=== PATIENT | female | born 1980 | race Caucasian/White ===

== ENCOUNTER 2017-07-30 20:36 | Emergency (ER) | payer OTHER | END 2017-07-30 23:00 | disposition left against medical advice (07) | LOC: ED 20:36 | DX: Z53.21 Procedure and treatment not carried out due to patient leaving prior to being seen by health care provider (principal) ==

== ENCOUNTER 2019-08-30 12:49 | Emergency (ER) | payer OTHER ==
[2019-08-30 13:27] VITALS: BP 123/61
--- NOTE | 2019-08-30 13:27 | Event Note ---
ED Screening Note ED Screening Note: sore throat states that her throat feels swollen occasional mild vomiting for a month no fever no vomiting chronic knee pain for three months no fall or injury no numbness or weakness ambulatory without difficulty went to her doctor and they gave her medicine pmhx none no allergies to meds LNMP: currently on cycle This initial assessment/diagnostic orders/clinical plan/treatment(s) is/are subject to change based on patients health status, clinical progression and re- assessment by fellow clinical providers in the ED. Further treatment and workup at subsequent clinical providers discretion. Patient/guardian urged not to elope from the ED as their condition may be serious if not clinically assessed and managed. Initial orders include:
--- NOTE | 2019-08-30 13:32 | Emergency Department Report ---
Chief Complaint: Sore Throat Stated Complaint: BLE KNEE SWOLLEN Time Seen by Provider: 08/30/19 13:22 - HPI History of Present Illness: sore throat states that her throat feels swollen states occasional feels like she needs to vomit this has been going on for a month no fever no vomiting chronic knee pain for three months no fall or injury no numbness or weakness ambulatory without difficulty went to her doctor and they gave her medicine which she states helped her knee pain pmhx none no allergies to meds LNMP: currently on cycle VSS on exam: non toxic appearing, no acute distress PERRL, EOMI, normal appearance of the eyes normal turbinates, normal TMs and canals bilaterally, normal oropharynx, no tonsillar hypertrophy or exudates, uvula is midline, no uvular edema or deviation no LAD mild fullness in the region of the thyroid, no goiter, no obvious nodules, FROM of the neck without difficulty mild bradycardia, regular rhythm, no murmurs, no gallops, no rubs breath sounds are clear bilaterally, no w/r/r, no stridor FROM of the bilateral knees without difficulty, no TTP of the bilateral knees, no obvious edema, no joint laxity, neurovascularly intact skin is warm, dry, intact pt is presenting with a non medical emergency at this time, there is no threat to life or limb at this time will refer pt to an orthopedic for her chronic knee pain will refer pt to PCP and ENT, advised pt to have a full thyroid panel run by her PCP due to mild fullness pt given strict return precautions [place] interpretation by pts daughter - Exam Vital Signs: Vital Signs 08/30/19 13:22 Temperature 98 F Pulse Rate 57 L Respiratory 18 Rate Blood Pressure 123/61 O2 Sat by Pulse 100 Oximetry MSE screening note: Focused history and physical exam performed. ED Disposition for MSE Clinical Impression: Thyroid fullness Chronic knee pain Qualifiers: Laterality: bilateral Qualified Code(s): M25.561 - Pain in right knee Disposition: Z-07 MED SCREENING EXAM-LEFT Is pt being admited?: No Does the pt Need Aspirin: No Condition: Stable Instructions: Knee Pain (ED) Additional Instructions: please follow up with your primary care doctor. you have some fullness in the thyroid region you need to have a full thyroid panel performed by your primary care doctor. please follow up with an orthopedic doctor for your knee pain. may use ice for 15 minutes at a time, rest, elevation of the leg, etc. return to the emergency room for any new or worsening symptoms. macrina un seguimiento con delgado mdico de atencin primaria. tiene algo de plenitud en la regin tiroidea, necesita que delgado mdico de atencin primaria realice un panel completo de tiroides. macrina un seguimiento con un mdico ortopdico para el dolor de rodilla. puede usar hielo neris 15 minutos seguidos, descansar, elevar la pierna, etc. regresar a la sara de emergencias por cualquier sntoma nuevo o que empeore. Referrals: your, primary care doctor [Other] - 2-3 Days PACHECO KOCH MD [Staff Physician] - 2-3 Days CHRIS PHILLIPS MD [Staff Physician] - 2-3 Days ALESSIA GRANT MD [Staff Physician] - 2-3 Days Time of Disposition: 13:33 Print Language: MOLDOVAN
== END 2019-08-30 14:21 | disposition left against medical advice (07) ==
LOC: ED 12:49
DX: M25.561 Pain in right knee (principal); G89.29 Other chronic pain; E05.00 Thyrotoxicosis with diffuse goiter without thyrotoxic crisis or storm
CPT/HCPCS: 99281

== ENCOUNTER 2019-09-10 19:31 | Emergency (ER) | payer OTHER ==
--- NOTE | 2019-09-10 20:07 | Emergency Department Report ---
Blank Doc - Documentation Documentation: 38-year-old female that presents with urinary symptoms. This initial assessment/diagnostic orders/clinical plan/treatment(s) is/are subject to change based on patient's health status, clinical progression and re- assessment by fellow clinical providers in the ED. Further treatment and workup at subsequent clinical providers discretion. Patient/guardians urged not to elope from the ED as their condition may be serious if not clinically assessed and managed. Initial orders include: 1- Patient sent to [facility] for further evaluation and treatment 2- UA
[2019-09-10 21:52] LABS: Bacteria,Urine 1+ /HPF (Negative); Bilirubin,Urine NEG (Negative); Blood,Urine NEG (Negative); Color,Urine Straw (Yellow); Mucus,Urine 1+ /HPF; Protein,Urine <15 mg/dL mg/dL (Negative); Urobilinogen,Urine < 2.0 mg/dL (<2.0)
[2019-09-10 21:55] LABS: HCG Qualitative,Urine Negative (Negative)
[2019-09-10] MEDS ORDERED: LIDOCAINE-MPF (1%) 10 MG/1 ML VIAL 5 ML ONE (23:56)
[2019-09-11] MEDS ORDERED: AZITHROMYCIN 250 MG TAB PO ONE (00:14)
[2019-09-11] MEDS ORDERED: HYDROcodone/ACETAMINOPHEN 5-325 MG TAB PO ONE (00:14)
[2019-09-11] MEDS ORDERED: LIDOCAINE-MPF (1%) 10 MG/1 ML VIAL 5 ML INFILTRATI ONE (00:15)
--- NOTE | 2019-09-11 00:21 | Emergency Department Report ---
ED Female HPI - General Chief complaint: Urogenital-Female Stated complaint: PAIN WHEN URINATING Time Seen by Provider: 09/10/19 20:06 Source: patient Mode of arrival: Ambulatory Limitations: No Limitations - History of Present Illness Initial comments: Ms. Begum is a 38-year-old female that presents with urinary symptoms and abscess on left labia. There is no fever or chills. no n/v. MD Complaint: vaginal discharge, dysuria, other (bartholin cyst / abscess ) Onset/Timin -: days(s) Location: labia (left ) Severity: moderate Severity scale (0 -10): 5 Quality: aching Consistency: constant Worsens with: urination Are you Now?: No Last Menstrual Period: 09/09/19 EDC: 06/15/20 Associated Symptoms: vaginal discharge, dysuria. denies: abdominal pain, nausea/vomiting, hematuria - Related Data Sexually active: Yes : 3 Para: 3 A: 0 Previous Rx's Medication Instructions Recorded Last Taken Type Amoxicillin [Trimox CAP] 500 mg PO QID #40 capsule 05/10/13 Unknown Rx Hydrocodone Bit/Acetaminophen 1 each PO Q6HR #15 tablet 05/10/13 Unknown Rx [Lortab 5-500 Tablet] Loratadine (Nf) [Claritin] 10 mg PO DAILY #30 tablet 05/10/13 Unknown Rx Prednisone 40 mg PO QDAY #10 tablet 05/10/13 Unknown Rx traMADoL [Ultram] 50 mg PO Q6HR PRN #30 tablet 03/26/16 Unknown Rx cephALEXin [Keflex] 500 mg PO BID 7 Days #14 cap 09/11/19 Unknown Rx metroNIDAZOLE [Flagyl] 500 mg PO BID 7 Days #14 tablet 09/11/19 Unknown Rx traMADoL [Ultram] 50 mg PO Q6HR PRN #12 tablet 09/11/19 Unknown Rx Allergies Allergy/AdvReac Type Severity Reaction Status Date / Time No Known Allergies Allergy Unverified 05/10/13 15:40 ED Review of Systems ROS: Stated complaint: PAIN WHEN URINATING Other details as noted in HPI Constitutional: denies: chills, fever Eyes: denies: eye pain, eye discharge, vision change ENT: denies: ear pain, throat pain Respiratory: denies: cough, shortness of breath, wheezing Cardiovascular: denies: chest pain, palpitations Endocrine: no symptoms reported Gastrointestinal: abdominal pain. denies: nausea, vomiting, diarrhea, constipation Genitourinary: urgency, dysuria, frequency, discharge (white thick ), dyspareunia. denies: hematuria Musculoskeletal: denies: back pain, joint swelling, arthralgia Skin: denies: rash, lesions Neurological: denies: headache, weakness, paresthesias Psychiatric: denies: anxiety, depression Hematological/Lymphatic: denies: easy bleeding, easy bruising ED Past Medical Hx - Past Medical History Previous Medical History?: Yes Hx Diabetes: Yes (pregancy only) - Surgical History Past Surgical History?: No - Social History Smoking Status: Never Smoker Substance Use Type: None - Medications Home Medications: Home Medications Medication Instructions Recorded Confirmed Last Taken Type Amoxicillin [Trimox CAP] 500 mg PO QID #40 capsule 05/10/13 Unknown Rx Hydrocodone Bit/Acetaminophen 1 each PO Q6HR #15 tablet 05/10/13 Unknown Rx [Lortab 5-500 Tablet] Loratadine (Nf) [Claritin] 10 mg PO DAILY #30 tablet 05/10/13 Unknown Rx Prednisone 40 mg PO QDAY #10 tablet 05/10/13 Unknown Rx traMADoL [Ultram] 50 mg PO Q6HR PRN #30 tablet 03/26/16 Unknown Rx cephALEXin [Keflex] 500 mg PO BID 7 Days #14 cap 09/11/19 Unknown Rx metroNIDAZOLE [Flagyl] 500 mg PO BID 7 Days #14 tablet 09/11/19 Unknown Rx traMADoL [Ultram] 50 mg PO Q6HR PRN #12 tablet 09/11/19 Unknown Rx ED Physical Exam - General Limitations: No Limitations General appearance: alert, in no apparent distress - Head Head exam: Present: atraumatic, normocephalic - Eye Eye exam: Present: normal appearance, PERRL, EOMI Pupils: Present: normal accommodation - ENT ENT exam: Present: mucous membranes moist - Neck Neck exam: Present: normal inspection, full ROM. Absent: tenderness - Respiratory Respiratory exam: Present: normal lung sounds bilaterally. Absent: respiratory distress, wheezes - Cardiovascular Cardiovascular Exam: Present: regular rate, normal rhythm, normal heart sounds. Absent: systolic murmur, diastolic murmur, rubs, gallop - GI/Abdominal GI/Abdominal exam: Present: soft, normal bowel sounds. Absent: distended, tenderness, bruit, hernia - Rectal Rectal exam: Present: deferred - External exam: Present: erythema, swelling (left labia ). Absent: lesions, lacerations, ecchymosis, bleeding Speculum exam: Present: erythema, vaginal discharge (white thick malodorous ). Absent: cervical discharge, vaginal bleeding, foreign body, tissue, laceration Bi-manual exam: Absent: cervical motion tendernes - Extremities Exam Extremities exam: Present: normal inspection. Absent: tenderness - Back Exam Back exam: Present: normal inspection, full ROM. Absent: tenderness, CVA tenderness (R), CVA tenderness (L), rash noted - Neurological Exam Neurological exam: Present: alert, oriented X3, CN II-XII intact, normal gait - Psychiatric Psychiatric exam: Present: normal affect, normal mood - Skin Skin exam: Present: warm, dry, intact, normal color. Absent: rash ED Course Vital Signs 09/10/19 19:34 Temperature 97.9 F Pulse Rate 70 Respiratory 18 Rate Blood Pressure 126/58 O2 Sat by Pulse 100 Oximetry ED Medical Decision Making - Medical Decision Making Bartholin cyst for I&D pt tolerated procedure with minimal distress, pt tx'd with rocephin, azithromycin, hydrocodone, dc to home with rx for flagyl, for recurring batholyn cyst, no tx'd for STI previously, concerned fore same, pt will follow up with [facility] in 2-3 days, and health department for hiv and hsv screening. Critical care attestation.: If time is entered above; I have spent that time in minutes in the direct care of this critically ill patient, excluding procedure time. ED Disposition Clinical Impression: Bartholin cyst, Dysuria Vaginitis Qualifiers: Chronicity: acute Qualified Code(s): N76.0 - Acute vaginitis Disposition: DC-01 TO HOME OR SELFCARE Is pt being admited?: No Does the pt Need Aspirin: No Condition: Stable Instructions: Bartholin Cyst (ED), Dysuria (ED), Vaginitis (ED) Prescriptions: metroNIDAZOLE [Flagyl] 500 mg PO BID 7 Days #14 tablet cephALEXin [Keflex] 500 mg PO BID 7 Days #14 cap traMADoL [Ultram] 50 mg PO Q6HR PRN #12 tablet PRN Reason: Pain Referrals: JOSE BROWN MD [Staff Physician] - 3-5 Days DIONNE AMIN MD [Referring] - 3-5 Days Forms: Work/School Release Form(ED) Time of Disposition: 00:32 Print Language: GREENLANDIC
[2019-09-11 01:09] VITALS: BP 126/68
== END 2019-09-11 01:07 | disposition home or self-care (01) ==
LOC: ED 19:31
DX: N76.0 Acute vaginitis (principal); N75.0 Cyst of Bartholin's gland; Z79.899 Other long term (current) drug therapy
CPT/HCPCS: 56420; 81001; 81025; 87086; 93005; 93010; 96372; 99284; J0696

== ENCOUNTER 2019-10-05 09:18 | Outpatient (CLI) | payer OTHER ==
--- NOTE | 2019-10-05 11:58 | Ultrasound Report ---
ULTRASOUND THYROID INDICATION / CLINICAL INFORMATION: R94.6Abnormal results of thyroid function studies. COMPARISON: None available. FINDINGS: RIGHT LOBE: Size = 5.8 x 1.0 x 2.0 cm. - Echogenicity: Normal. - Vascularity: Normal. - Nodules < 1 cm: None. - Nodules >= 1 cm or Suspicious Nodules: None. LEFT LOBE: Size = 5.2 x 1.0 x 2.1 cm. - Echogenicity: Normal. - Vascularity: Normal. - Nodules < 1 cm: None. - Nodules >= 1 cm or Suspicious Nodules: None. ISTHMUS: No significant abnormality. - Nodules < 1 cm: None. - Nodules >= 1 cm or Suspicious Nodules: None. LYMPH NODES: No abnormal lymph nodes. PARATHYROID GLANDS: No abnormal parathyroid gland. ADDITIONAL FINDINGS: None. IMPRESSION: 1. No significant abnormality. Note: Nodule size based on mean (average) size of 3 dimensions. Note: Nodules < 1 cm do not typically require follow-up or FNA unless there are suspicious features ( CYRUS, 2015) ACR TI-RADS Thyroid Nodule Recommendations TI-RADS 1 (0 points) -- Benign. No FNA or follow-up. TI-RADS 2 (1-2 points) -- Not suspicious. No FNA or follow-up. TI-RADS 3 (3 points) -- Mildly suspicious. Follow up in 1 year if 1.5 cm. FNA if 2.5 cm. TI-RADS 4 (4-6 points) -- Moderately suspicious. Follow up in 1 year if 1.0 cm. FNA if 1.5 cm. TI-RADS 5 (7+ points) -- Highly suspicious. Follow up in 1 year if 0.5 cm. FNA if 1.0 cm. Signer Name: Cr Del Cid MD Signed: 10/05/2019 11:53 AM Workstation Name: [employer]
== END 2019-10-05 09:19 | disposition home or self-care (01) ==
LOC: US 09:18
PROVIDERS: ATTEND Internal Medicine
DX: R94.6 Abnormal results of thyroid function studies (principal)
CPT/HCPCS: 36415; 76536; 84439; 84443

== ENCOUNTER 2019-11-07 10:12 | Emergency (ER) | payer OTHER ==
[2019-11-07 10:19] VITALS: BP 120/80
[2019-11-07 10:42] LABS: Bacteria,Urine 1+ /HPF (Negative); Bilirubin,Urine NEG (Negative); Blood,Urine LG (Negative); Color,Urine Straw (Yellow); Mucus,Urine FEW /HPF; Protein,Urine <15 mg/dL mg/dL (Negative); Urobilinogen,Urine < 2.0 mg/dL (<2.0)
--- NOTE | 2019-11-07 11:53 | Emergency Department Report ---
ED Female HPI - General Chief complaint: Urogenital-Female Stated complaint: URINE ABNORMAL/ABD PAIN Time Seen by Provider: 11/07/19 10:39 Source: patient Mode of arrival: Ambulatory Limitations: No Limitations - History of Present Illness Initial comments: 39-year-old female presents to the emergency room complaining of burning sensation with urination. Patient denies any fever chills no nausea no vomiting no diarrhea. Does complain of suprapubic pain and dysuria. MD Complaint: dysuria - Related Data Previous Rx's Medication Instructions Recorded Last Taken Type Amoxicillin [Trimox CAP] 500 mg PO QID #40 capsule 05/10/13 Unknown Rx Hydrocodone Bit/Acetaminophen 1 each PO Q6HR #15 tablet 05/10/13 Unknown Rx [Lortab 5-500 Tablet] Loratadine (Nf) [Claritin] 10 mg PO DAILY #30 tablet 05/10/13 Unknown Rx Prednisone 40 mg PO QDAY #10 tablet 05/10/13 Unknown Rx traMADoL [Ultram] 50 mg PO Q6HR PRN #30 tablet 03/26/16 Unknown Rx cephALEXin [Keflex] 500 mg PO BID 7 Days #14 cap 09/11/19 Unknown Rx metroNIDAZOLE [Flagyl] 500 mg PO BID 7 Days #14 tablet 09/11/19 Unknown Rx traMADoL [Ultram] 50 mg PO Q6HR PRN #12 tablet 09/11/19 Unknown Rx Nitrofurantoin [place]/M-Cryst 100 mg PO Q12HR 10 Days #20 capsule 11/07/19 Unknown Rx [Macrobid CAP] Allergies Allergy/AdvReac Type Severity Reaction Status Date / Time No Known Allergies Allergy Unverified 05/10/13 15:40 ED Review of Systems ROS: Stated complaint: URINE ABNORMAL/ABD PAIN Other details as noted in HPI ED Past Medical Hx - Past Medical History Previous Medical History?: Yes Hx Diabetes: Yes (pregancy only) - Surgical History Past Surgical History?: No - Social History Smoking Status: Never Smoker Substance Use Type: None - Medications Home Medications: Home Medications Medication Instructions Recorded Confirmed Last Taken Type Amoxicillin [Trimox CAP] 500 mg PO QID #40 capsule 05/10/13 Unknown Rx Hydrocodone Bit/Acetaminophen 1 each PO Q6HR #15 tablet 05/10/13 Unknown Rx [Lortab 5-500 Tablet] Loratadine (Nf) [Claritin] 10 mg PO DAILY #30 tablet 05/10/13 Unknown Rx Prednisone 40 mg PO QDAY #10 tablet 05/10/13 Unknown Rx traMADoL [Ultram] 50 mg PO Q6HR PRN #30 tablet 03/26/16 Unknown Rx cephALEXin [Keflex] 500 mg PO BID 7 Days #14 cap 09/11/19 Unknown Rx metroNIDAZOLE [Flagyl] 500 mg PO BID 7 Days #14 tablet 09/11/19 Unknown Rx traMADoL [Ultram] 50 mg PO Q6HR PRN #12 tablet 09/11/19 Unknown Rx Nitrofurantoin [place]/M-Cryst 100 mg PO Q12HR 10 Days #20 capsule 11/07/19 Unknown Rx [Macrobid CAP] ED Physical Exam - General Limitations: No Limitations General appearance: alert, in no apparent distress - Head Head exam: Present: atraumatic, normocephalic - ENT ENT exam: Present: mucous membranes moist - Neurological Exam Neurological exam: Present: alert, oriented X3, normal gait - Psychiatric Psychiatric exam: Present: normal affect, normal mood - Skin Skin exam: Present: warm, dry, intact, normal color. Absent: rash ED Course Vital Signs 11/07/19 10:16 Temperature 98.2 F Pulse Rate 64 Respiratory 16 Rate Blood Pressure 120/80 O2 Sat by Pulse 100 Oximetry ED Medical Decision Making - Medical Decision Making 39-year-old female presents to the emergency room complaining of burning sensation with urination. Patient denies any fever chills no nausea no vomiting no diarrhea. Does complain of suprapubic pain and dysuria. Patient has a urinary tract infection will treat with Macrobid 100 mg p.o. twice daily for 10 days and recommend patient to take either Tylenol or ibuprofen for pain management. Patient is to increase her water intake. Critical care attestation.: If time is entered above; I have spent that time in minutes in the direct care of this critically ill patient, excluding procedure time. ED Disposition Clinical Impression: UTI (urinary tract infection) Disposition: DC-01 TO HOME OR SELFCARE Is pt being admited?: No Does the pt Need Aspirin: No Condition: Stable Instructions: Urinary Tract Infection in Women (ED) Additional Instructions: Complete antibiotic as prescribed medication. Take Tylenol or Ibuprofen as needed for pain. Increase fluid intake. Prescriptions: Nitrofurantoin [place]/M-Cryst [Macrobid CAP] 100 mg PO Q12HR 10 Days #20 capsule Referrals: JASSON MARTINEZ MD [Primary Care Provider] - 3-5 Days
== END 2019-11-07 12:16 | disposition home or self-care (01) ==
LOC: ED 10:12
DX: N39.0 Urinary tract infection, site not specified (principal); Z79.2 Long term (current) use of antibiotics; Z79.899 Other long term (current) drug therapy
CPT/HCPCS: 81001; 87086; 99283

== ENCOUNTER 2020-04-26 22:57 | Emergency (ER) | payer OTHER ==
[2020-04-27 01:54] VITALS: BP 110/37
[2020-04-27] MEDS ORDERED: diphenhydrAMINE 25 MG CAP PO ONE (02:23)
[2020-04-27] MEDS ORDERED: dexAMETHasone 20 MG/5 ML VIAL IM ONE (02:23)
[2020-04-27] MEDS ORDERED: traMADol 50 MG TAB PO ONE (02:24)
--- NOTE | 2020-04-27 02:29 | Emergency Department Report ---
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 Patient denies fall injury or trauma. There is no laceration no bleeding no deformity. Patient describes symptoms as tingly burning sensation . pt denies neck injury , fall , or other trauma. 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 Symptoms rated at 4/10. Symptoms are relieved by nothing tried. Patient has history of arthralgia and bilateral knee bursitis. - Related Data Previous Rx's Medication Instructions Recorded Last Taken Type Amoxicillin [Trimox CAP] 500 mg PO QID #40 capsule 05/10/13 Unknown Rx Hydrocodone Bit/Acetaminophen 1 each PO Q6HR #15 tablet 05/10/13 Unknown Rx [Lortab 5-500 Tablet] Loratadine (Nf) [Claritin] 10 mg PO DAILY #30 tablet 05/10/13 Unknown Rx Prednisone 40 mg PO QDAY #10 tablet 05/10/13 Unknown Rx traMADoL [Ultram] 50 mg PO Q6HR PRN #30 tablet 03/26/16 Unknown Rx cephALEXin [Keflex] 500 mg PO BID 7 Days #14 cap 09/11/19 Unknown Rx metroNIDAZOLE [Flagyl] 500 mg PO BID 7 Days #14 tablet 09/11/19 Unknown Rx traMADoL [Ultram] 50 mg PO Q6HR PRN #12 tablet 09/11/19 Unknown Rx Nitrofurantoin [place]/M-Cryst 100 mg PO Q12HR 10 Days #20 capsule 11/07/19 Unknown Rx [Macrobid CAP] Amoxicillin/Potassium Clav 1 each PO BID 10 Days #20 tablet 01/23/20 Unknown Rx [Augmentin 875-125 Tablet] Ibuprofen [Motrin 800 MG tab] 800 mg PO Q8HR PRN #15 tablet 01/23/20 Unknown Rx Prednisone [predniSONE 10 mg 10 mg PO .TAPER #1 tab.ds.pk 01/23/20 Unknown Rx (6-Day Pack, 21 Tabs)] Naproxen 500 mg PO BID PRN #30 tablet 04/27/20 Unknown Rx diphenhydrAMINE [Benadryl CAP] 25 mg PO Q8HR PRN 7 Days #21 04/27/20 Unknown Rx capsule predniSONE [Deltasone] 40 mg PO DAILY 5 Days #10 tablet 04/27/20 Unknown Rx Allergies Allergy/AdvReac Type Severity Reaction Status Date / Time No Known Allergies Allergy Unverified 05/10/13 15:40 ED Review of Systems ROS: Stated complaint: LEFTSIDE SHOULDER/ARM NUMBNESS Other details as noted in HPI Constitutional: denies: chills, fever Eyes: denies: eye pain, eye discharge, vision change ENT: denies: ear pain, throat pain Respiratory: denies: cough, shortness of breath, wheezing Cardiovascular: denies: chest pain, palpitations Endocrine: no symptoms reported Gastrointestinal: denies: abdominal pain, nausea, diarrhea Genitourinary: denies: urgency, dysuria, discharge Musculoskeletal: myalgia (left shoulder). denies: back pain, joint swelling, arthralgia Skin: denies: rash, lesions Neurological: denies: headache, weakness, paresthesias Psychiatric: denies: anxiety, depression Hematological/Lymphatic: denies: easy bleeding, easy bruising ED Past Medical Hx - Past Medical History Hx Diabetes: Yes (pregancy only) - Surgical History Past Surgical History?: No - Social History Smoking Status: Never Smoker Substance Use Type: None - Medications Home Medications: Home Medications Medication Instructions Recorded Confirmed Last Taken Type Amoxicillin [Trimox CAP] 500 mg PO QID #40 capsule 05/10/13 Unknown Rx Hydrocodone Bit/Acetaminophen 1 each PO Q6HR #15 tablet 05/10/13 Unknown Rx [Lortab 5-500 Tablet] Loratadine (Nf) [Claritin] 10 mg PO DAILY #30 tablet 05/10/13 Unknown Rx Prednisone 40 mg PO QDAY #10 tablet 05/10/13 Unknown Rx traMADoL [Ultram] 50 mg PO Q6HR PRN #30 tablet 03/26/16 Unknown Rx cephALEXin [Keflex] 500 mg PO BID 7 Days #14 cap 09/11/19 Unknown Rx metroNIDAZOLE [Flagyl] 500 mg PO BID 7 Days #14 tablet 09/11/19 Unknown Rx traMADoL [Ultram] 50 mg PO Q6HR PRN #12 tablet 09/11/19 Unknown Rx Nitrofurantoin [place]/M-Cryst 100 mg PO Q12HR 10 Days #20 capsule 11/07/19 Unknown Rx [Macrobid CAP] Amoxicillin/Potassium Clav 1 each PO BID 10 Days #20 tablet 01/23/20 Unknown Rx [Augmentin 875-125 Tablet] Ibuprofen [Motrin 800 MG tab] 800 mg PO Q8HR PRN #15 tablet 01/23/20 Unknown Rx Prednisone [predniSONE 10 mg 10 mg PO .TAPER #1 tab.ds.pk 01/23/20 Unknown Rx (6-Day Pack, 21 Tabs)] Naproxen 500 mg PO BID PRN #30 tablet 04/27/20 Unknown Rx diphenhydrAMINE [Benadryl CAP] 25 mg PO Q8HR PRN 7 Days #21 04/27/20 Unknown Rx capsule predniSONE [Deltasone] 40 mg PO DAILY 5 Days #10 tablet 04/27/20 Unknown Rx ED Physical Exam - General Limitations: No Limitations General appearance: alert, in no apparent distress - Head Head exam: Present: atraumatic, normocephalic - Eye Eye exam: Present: normal appearance, PERRL, EOMI Pupils: Present: normal accommodation - ENT ENT exam: Present: mucous membranes moist - Neck Neck exam: Present: normal inspection, full ROM. Absent: tenderness, lymphade nopathy - Expanded Neck Exam Expanded Neck exam: Absent: tenderness, midline deformity, anterior neck swelling, thyroid mass, carotid bruit, tracheal deviation - Respiratory Respiratory exam: Present: normal lung sounds bilaterally. Absent: respiratory distress, wheezes, stridor, chest wall tenderness - Cardiovascular Cardiovascular Exam: Present: regular rate, normal rhythm, normal heart sounds. Absent: systolic murmur, diastolic murmur, rubs, gallop - GI/Abdominal GI/Abdominal exam: Present: soft, normal bowel sounds. Absent: distended, tenderness, bruit, hernia - Rectal Rectal exam: Present: deferred - Extremities Exam Extremities exam: Present: full ROM, tenderness (left posterior lateral shoulder to deep palpation ), normal capillary refill. Absent: pedal edema, joint swelling, calf tenderness - Expanded Upper Extremity Exam Left Shoulder Exam: Present: full ROM, tenderness (left posterior lateral tenderness to deep palpation). Absent: swelling, abrasion, laceration, ecchymosis, deformity, crepidus, dislocation, erythema, tenderness over AC joint Upper Arm exam: Present: normal inspection, full ROM. Absent: tenderness, swelling Elbow exam: Present: full ROM. Absent: tenderness, swelling Forearm Wrist exam: Present: tenderness (carpal region tenderness ). Absent: swelling, abrasion, laceration, ecchymosis, deformity, crepidus, dislocation, erythema, tenderness over anatomical snuff box, pain with axial thumb loading Hand Wrist exam: Present: full ROM. Absent: tenderness, swelling, abrasion, laceration, crepidus Neuro motor exam: Present: wrist extension intact, thumb opposition intact, thumb IP flexion intact, thumb adduction intact, fingers 2-5 abduction intact Neurosensory exam: Present: radial nerve intact Vascular: Present: normal capillary refill - Back Exam Back exam: Present: normal inspection, full ROM. Absent: tenderness, vertebral tenderness - Neurological Exam Neurological exam: Present: alert, oriented X3, CN II-XII intact, normal gait, reflexes normal. Absent: motor sensory deficit - Expanded Neurological Exam Expanded Patient oriented to: Present: person, place, time Speech: Present: fluid speech Upper motor neuron: Buddy Neglect: Normal, Pronator Drift: Normal Motor strength exam: RUE: 5, LUE: 5 DTR: bicep (R): 2+, bicep (L): 2+, tricep (R): 2+, tricep (L): 2+ Best Eye Response ([place]): (4) open spontaneously Best Motor Response ([place]): (6) obeys commands Best Verbal Response ([place]): (5) oriented [facility] [place] Total: 15 - Psychiatric Psychiatric exam: Present: normal affect, normal mood - Skin Skin exam: Present: warm, dry, intact, normal color. 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 pt verbalized agreement and understanding of discharge plan. pt dc'd to home in stable condition at this time. Critical care attestation.: If time is entered above; I have spent that time in minutes in the direct care of this critically ill patient, excluding procedure time. ED Disposition Clinical Impression: Overuse injury Neuropathy, upper extremity Qualifiers: Laterality: left Qualified Code(s): G56.92 - Unspecified mononeuropathy of left upper limb Disposition: DC-01 TO HOME OR SELFCARE Is pt being admited?: No Does the pt Need Aspirin: No Condition: Stable Instructions: Paresthesia (ED) Prescriptions: diphenhydrAMINE [Benadryl CAP] 25 mg PO Q8HR PRN 7 Days #21 capsule PRN Reason: arm pain predniSONE [Deltasone] 40 mg PO DAILY 5 Days #10 tablet Naproxen 500 mg PO BID PRN #30 tablet PRN Reason: pain Referrals: PRIMARY CARE, [Primary Care Provider] - 3-5 Days Forms: Work/School Release Form(ED) Time of Disposition: 02:41
== END 2020-04-27 02:50 | disposition home or self-care (01) ==
LOC: ED 22:57
DX: G56.92 Unspecified mononeuropathy of left upper limb (principal); E11.9 Type 2 diabetes mellitus without complications; Z79.899 Other long term (current) drug therapy
CPT/HCPCS: 96372; 99282; J1100

== ENCOUNTER 2020-05-03 09:46 | Outpatient (CLI) | payer OTHER | END 2020-05-03 09:47 | disposition home or self-care (01) | LOC: LAB 09:46 | PROVIDERS: ATTEND Internal Medicine | DX: R73.9 Hyperglycemia, unspecified (principal); R94.6 Abnormal results of thyroid function studies; E56.9 Vitamin deficiency, unspecified | CPT/HCPCS: 36415; 83036; 84207; 84443 ==

== ENCOUNTER 2020-07-19 18:21 | Emergency (ER) | payer OTHER ==
[2020-07-19] MEDS ORDERED: ASPIRIN 325 MG TAB PO ONE (20:34)
[2020-07-19 21:34] LABS: Basophils % (Auto) 0.6 % (0.0-1.8); Eosinophils # (Auto) 0.2 K/mm3 (0.0-0.4); Hematocrit 37.6 % (30.3-42.9); Hemoglobin 12.9 gm/dl (10.1-14.3); Lymphocytes # (Auto) 2.4 K/mm3 (1.2-5.4); Lymphocytes % (Auto) 32.4 % (13.4-35.0); Mean Corpuscular HGB Conc 34 % (30-34); Mean Corpuscular Volume 91 fl (79-97); Monocytes # (Auto) 0.6 K/mm3 (0.0-0.8); Monocytes % (Auto) 7.6 % (0.0-7.3); Platelet Count 274 K/mm3 (140-440); Red Blood Count 4.15 M/mm3 (3.65-5.03); Red Cell Distribution Width 13.1 % (13.2-15.2)
[2020-07-19 21:44] LABS: Blood Urea Nitrogen 11 mg/dL (7-17); Hemolysis Index 8
[2020-07-19 21:45] LABS: BUN/Creatinine Ratio 28
--- NOTE | 2020-07-19 22:42 | XRay Report ---
CHEST 2 VIEWS 2214 INDICATION / CLINICAL INFORMATION: MAIN COMPARISON: 01/23/2020 FINDINGS: SUPPORT DEVICES: None. HEART / MEDIASTINUM: No significant abnormality. LUNGS / PLEURA: No significant pulmonary or pleural abnormality. No pneumothorax. ADDITIONAL FINDINGS: No significant additional findings. IMPRESSION: No significant acute abnormality Signer Name: Mina Archibald MD Signed: 07/19/2020 10:37 PM Workstation Name: [id number]
--- NOTE | 2020-07-20 11:52 | Emergency Department Report ---
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 She reports the pain started on the right side moved to the left, however now both sides of her chest are hurting with deep inhalation only. She denies any chest wall injury, shortness of breath, hemoptysis, fever/chills/sweats, abdominal pain, nausea/vomiting/diarrhea. No family history or personal history of heart disease per patient. She also denies any leg pain/swelling, recent long travel/surgeries, history of DVT/PE, or hormone use. Patient rates her pain as a 9/10 in severity and describes it as a stabbing pain. Severity scale (0 -10): 5 - Related Data Previous Rx's Medication Instructions Recorded Last Taken Type Amoxicillin [Trimox CAP] 500 mg PO QID #40 capsule 05/10/13 Unknown Rx Hydrocodone Bit/Acetaminophen 1 each PO Q6HR #15 tablet 05/10/13 Unknown Rx [Lortab 5-500 Tablet] Loratadine (Nf) [Claritin] 10 mg PO DAILY #30 tablet 05/10/13 Unknown Rx Prednisone 40 mg PO QDAY #10 tablet 05/10/13 Unknown Rx traMADoL [Ultram] 50 mg PO Q6HR PRN #30 tablet 03/26/16 Unknown Rx cephALEXin [Keflex] 500 mg PO BID 7 Days #14 cap 09/11/19 Unknown Rx metroNIDAZOLE [Flagyl] 500 mg PO BID 7 Days #14 tablet 09/11/19 Unknown Rx traMADoL [Ultram] 50 mg PO Q6HR PRN #12 tablet 09/11/19 Unknown Rx Nitrofurantoin [place]/M-Cryst 100 mg PO Q12HR 10 Days #20 capsule 11/07/19 Unknown Rx [Macrobid CAP] Amoxicillin/Potassium Clav 1 each PO BID 10 Days #20 tablet 01/23/20 Unknown Rx [Augmentin 875-125 Tablet] Ibuprofen [Motrin 800 MG tab] 800 mg PO Q8HR PRN #15 tablet 01/23/20 Unknown Rx Prednisone [predniSONE 10 mg 10 mg PO .TAPER #1 tab.ds.pk 01/23/20 Unknown Rx (6-Day Pack, 21 Tabs)] Naproxen 500 mg PO BID PRN #30 tablet 04/27/20 Unknown Rx diphenhydrAMINE [Benadryl CAP] 25 mg PO Q8HR PRN 7 Days #21 04/27/20 Unknown Rx capsule predniSONE [Deltasone] 40 mg PO DAILY 5 Days #10 tablet 04/27/20 Unknown Rx Naproxen [Naprosyn] 500 mg PO BID PRN #14 tablet 07/20/20 Unknown Rx methOCARBAMOL [Robaxin TAB] 1,000 mg PO TID PRN #30 tablet 07/20/20 Unknown Rx Allergies Allergy/AdvReac Type Severity Reaction Status Date / Time No Known Allergies Allergy Unverified 05/10/13 15:40 Heart Score - HEART Score History: Slightly suspicious EKG: Normal Age: < 45 Risk factors: No known risk factors Troponin: < normal limit HEART Score: 0 - Critical Actions Critical Actions: 0-3 pts:0.9-1.7%risk of adverse cardiac event.Candidate for discharge ED Review of Systems ROS: Stated complaint: CHEST PAINS/BACK PAIN Other details as noted in HPI Constitutional: denies: chills, fever Eyes: denies: vision change ENT: denies: throat pain Respiratory: cough. denies: shortness of breath Cardiovascular: chest pain. denies: edema, syncope Gastrointestinal: denies: abdominal pain, nausea, diarrhea Musculoskeletal: back pain. denies: joint swelling, arthralgia Neurological: denies: headache, weakness, numbness, paresthesias Hematological/Lymphatic: denies: easy bruising, swollen glands ED Past Medical Hx - Past Medical History Previous Medical History?: Yes Hx Diabetes: Yes (pregancy only) - Surgical History Past Surgical History?: No - Social History Smoking Status: Never Smoker Substance Use Type: None - Medications Home Medications: Home Medications Medication Instructions Recorded Confirmed Last Taken Type Amoxicillin [Trimox CAP] 500 mg PO QID #40 capsule 05/10/13 Unknown Rx Hydrocodone Bit/Acetaminophen 1 each PO Q6HR #15 tablet 05/10/13 Unknown Rx [Lortab 5-500 Tablet] Loratadine (Nf) [Claritin] 10 mg PO DAILY #30 tablet 05/10/13 Unknown Rx Prednisone 40 mg PO QDAY #10 tablet 05/10/13 Unknown Rx traMADoL [Ultram] 50 mg PO Q6HR PRN #30 tablet 03/26/16 Unknown Rx cephALEXin [Keflex] 500 mg PO BID 7 Days #14 cap 09/11/19 Unknown Rx metroNIDAZOLE [Flagyl] 500 mg PO BID 7 Days #14 tablet 09/11/19 Unknown Rx traMADoL [Ultram] 50 mg PO Q6HR PRN #12 tablet 09/11/19 Unknown Rx Nitrofurantoin [place]/M-Cryst 100 mg PO Q12HR 10 Days #20 capsule 11/07/19 Unknown Rx [Macrobid CAP] Amoxicillin/Potassium Clav 1 each PO BID 10 Days #20 tablet 01/23/20 Unknown Rx [Augmentin 875-125 Tablet] Ibuprofen [Motrin 800 MG tab] 800 mg PO Q8HR PRN #15 tablet 01/23/20 Unknown Rx Prednisone [predniSONE 10 mg 10 mg PO .TAPER #1 tab.ds.pk 01/23/20 Unknown Rx (6-Day Pack, 21 Tabs)] Naproxen 500 mg PO BID PRN #30 tablet 04/27/20 Unknown Rx diphenhydrAMINE [Benadryl CAP] 25 mg PO Q8HR PRN 7 Days #21 04/27/20 Unknown Rx capsule predniSONE [Deltasone] 40 mg PO DAILY 5 Days #10 tablet 04/27/20 Unknown Rx Naproxen [Naprosyn] 500 mg PO BID PRN #14 tablet 07/20/20 Unknown Rx methOCARBAMOL [Robaxin TAB] 1,000 mg PO TID PRN #30 tablet 07/20/20 Unknown Rx ED Physical Exam - General Limitations: No Limitations, Language Barrier General appearance: alert, in no apparent distress - Head Head exam: Present: atraumatic, normocephalic - Eye Eye exam: Present: normal appearance. Absent: scleral icterus - ENT ENT exam: Present: mucous membranes moist - Neck Neck exam: Present: normal inspection, full ROM - Respiratory Respiratory exam: Present: normal lung sounds bilaterally, chest wall tenderness (Bilateral anterior and posterior without bruising or obvious deformity noted). Absent: respiratory distress - Cardiovascular Cardiovascular Exam: Present: regular rate, normal rhythm - GI/Abdominal GI/Abdominal exam: Present: soft. Absent: tenderness - Extremities Exam Extremities exam: Present: full ROM, calf tenderness (No swelling or tenderness noted). Absent: joint swelling - Back Exam Back exam: Present: full ROM. Absent: vertebral tenderness - Neurological Exam Neurological exam: Present: alert, oriented X3, normal gait - Psychiatric Psychiatric exam: Present: normal affect, normal mood - Skin Skin exam: Present: warm, dry ED Course Vital Signs 07/19/20 07/20/20 07/20/20 20:01 08:08 12:37 Temperature 98.0 F 98 F 97.9 F Pulse Rate 64 66 55 L Respiratory 18 18 20 Rate Blood Pressure 110/35 101/51 Blood Pressure 103/35 [Right] O2 Sat by Pulse 98 97 98 Oximetry ED Medical Decision Making - Lab Data Result diagrams: 07/19/20 21:09 07/19/20 21:09 Lab Results 07/19/20 07/19/20 07/19/20 Range/Units 21:09 21:09 21:09 WBC 7.5 (4.5-11.0) K/mm3 RBC 4.15 (3.65-5.03) M/mm3 Hgb 12.9 (10.1-14.3) gm/dl Hct 37.6 (30.3-42.9) % MCV 91 (79-97) fl MCH 31 (28-32) pg MCHC 34 (30-34) % RDW 13.1 L (13.2-15.2) % Plt Count 274 (140-440) K/mm3 Lymph % (Auto) 32.4 (13.4-35.0) % [place] % (Auto) 7.6 H (0.0-7.3) % Eos % (Auto) 3.0 (0.0-4.3) % Baso % (Auto) 0.6 (0.0-1.8) % Lymph # (Auto) 2.4 (1.2-5.4) K/mm3 [place] # (Auto) 0.6 (0.0-0.8) K/mm3 Eos # (Auto) 0.2 (0.0-0.4) K/mm3 Baso # (Auto) 0.0 (0.0-0.1) K/mm3 Seg Neutrophils % 56.4 (40.0-70.0) % Seg Neutrophils # 4.2 (1.8-7.7) K/mm3 Sodium 138 (137-145) mmol/L Potassium 3.8 (3.6-5.0) mmol/L Chloride 102.7 (98-107) mmol/L Carbon Dioxide 25 (22-30) mmol/L Anion Gap 14 mmol/L BUN 11 (7-17) mg/dL Creatinine 0.4 L (0.6-1.2) mg/dL Estimated GFR > 60 ml/min BUN/Creatinine Ratio 28 % Glucose 104 H (65-100) mg/dL Calcium 9.0 (8.4-10.2) mg/dL Troponin T < 0.010 (0.00-0.029) ng/mL HCG, Qual Negative (Negative) 07/19/20 07/20/20 Range/Units 23:37 02:20 WBC (4.5-11.0) K/mm3 RBC (3.65-5.03) M/mm3 Hgb (10.1-14.3) gm/dl Hct (30.3-42.9) % MCV (79-97) fl MCH (28-32) pg MCHC (30-34) % RDW (13.2-15.2) % Plt Count (140-440) K/mm3 Lymph % (Auto) (13.4-35.0) % [place] % (Auto) (0.0-7.3) % Eos % (Auto) (0.0-4.3) % Baso % (Auto) (0.0-1.8) % Lymph # (Auto) (1.2-5.4) K/mm3 [place] # (Auto) (0.0-0.8) K/mm3 Eos # (Auto) (0.0-0.4) K/mm3 Baso # (Auto) (0.0-0.1) K/mm3 Seg Neutrophils % (40.0-70.0) % Seg Neutrophils # (1.8-7.7) K/mm3 Sodium (137-145) mmol/L Potassium (3.6-5.0) mmol/L Chloride (98-107) mmol/L Carbon Dioxide (22-30) mmol/L Anion Gap mmol/L BUN (7-17) mg/dL Creatinine (0.6-1.2) mg/dL Estimated GFR ml/min BUN/Creatinine Ratio % Glucose (65-100) mg/dL Calcium (8.4-10.2) mg/dL Troponin T < 0.010 < 0.010 (0.00-0.029) ng/mL HCG, Qual (Negative) - EKG Data EKG shows normal: sinus rhythm Rate: bradycardia (53 bpm) - EKG Data Interpretation: normal EKG - Radiology Data Radiology results: report reviewed CHEST 2 VIEWS 2214 INDICATION / CLINICAL INFORMATION: MAIN COMPARISON: 01/23/2020 FINDINGS: SUPPORT DEVICES: None. HEART / MEDIASTINUM: No significant abnormality. LUNGS / PLEURA: No significant pulmonary or pleural abnormality. No pneumothorax. ADDITIONAL FINDINGS: No significant additional findings. IMPRESSION: No significant acute abnormality - Medical Decision Making 39-year-old female patient without past medical history presents with complaints of bilateral chest pain starting yesterday upon waking. She reports the pain started on the right side moved to the left, however now both sides of her chest are hurting with deep inhalation only. She denies any chest wall injury, shortness of breath, hemoptysis, fever/chills/sweats, abdominal pain, nausea/vomiting/diarrhea. No family history or personal history of heart disease per patient. She also denies any leg pain/swelling, recent long travel/surgeries, history of DVT/PE, or hormone use. Patient rates her pain as a 9/10 in severity and describes it as a stabbing pain. Patient also admits to a mild cough that started yesterday. Heart score = 0. PERC score = 0. Normal troponin x 3. Diffuse tenderness over upper back and chest wall to palpation on exam. Physical exam is otherwise normal. Will treat for musculoskeletal pain with ibuprofen and Robaxin. Recommend outpatient Covid testing-patient provided with testing facility list. Patient to follow-up with primary care in 3 days. Discussed signs and symptoms that should prompt immediate return to the emergency department in detail with patient who verbalizes understanding. Critical care attestation.: If time is entered above; I have spent that time in minutes in the direct care of this critically ill patient, excluding procedure time. ED Disposition Clinical Impression: Other chest pain Disposition: DC-01 TO HOME OR SELFCARE Is pt being admited?: No Condition: Stable Instructions: Chest Wall Pain, Costochondritis, Chest Pain (ED) Prescriptions: Naproxen [Naprosyn] 500 mg PO BID PRN #14 tablet PRN Reason: pain methOCARBAMOL [Robaxin TAB] 1,000 mg PO TID PRN #30 tablet PRN Reason: muscle tightness Referrals: SHABBIR RAMIREZ MD [Primary Care Provider] - 07/22/20 Print Language: BENGAL[place]
[2020-07-20] MEDS ORDERED: IBUPROFEN 800 MG TAB PO ONE (12:00)
[2020-07-20 12:38] VITALS: BP 103/35
== END 2020-07-19 20:40 | disposition home or self-care (01) ==
LOC: ED 18:21
DX: R07.89 Other chest pain (principal); Z53.21 Procedure and treatment not carried out due to patient leaving prior to being seen by health care provider
CPT/HCPCS: 36415; 71046; 80048; 84484; 84703; 85025; 93005